=== PATIENT | male | born 1985 | race African-American/Black ===

== ENCOUNTER 2022-08-22 17:19 | Emergency (ER) | payer MEDICAID ==
[~2022-08-22] VITALS: Ht 167.6 cm; Wt 88.0 kg
[2022-08-22 17:52] VITALS: BP 145/91; PULSE 92; RESP 18; TEMP 98.3
== END 2022-08-22 21:30 | disposition left against medical advice (07) ==
LOC: ER 17:19
DX: Z53.21 Procedure and treatment not carried out due to patient leaving prior to being seen by health care provider (principal)
CPT/HCPCS: 99281